=== PATIENT | male | born 1975 | race Caucasian/White ===

== ENCOUNTER 2017-05-23 19:43 | Emergency (ER) | payer SELFPAY ==
[~2017-05-23] VITALS: Ht 175.3 cm; Wt 102.8 kg
[2017-05-23] MEDS ORDERED: KETOROLAC 30 MG/1 ML IVPush ONE (20:30)
[2017-05-23] MEDS ORDERED: ASPIRIN 81 MG TABLET CHEW PO ONE (20:30)
[2017-05-23] MEDS ORDERED: SODIUM CHLORIDE FLUSH 10ML SYR IVF ONE (20:30)
[2017-05-23 20:40] LABS: BASOPHILS # (AUTO) 0.05 x10^3/uL (0-0.1); BASOPHILS % (AUTO) 1 % (0-1); EOSINOPHILS # (AUTO) 0.56 x10^3/uL (0-0.4); EOSINOPHILS % (AUTO) 7 % (1-7); LYMPHOCYTES # (AUTO) 3.08 x10^3/uL (1-3.4); LYMPHOCYTES % (AUTO) 37 % (22-44); MD NO; MEAN CORPUSCULAR HEMOGLOBIN 30.6 pg (27.5-34.5); MEAN CORPUSCULAR HGB CONC 33.8 g/dL (33.2-36.2); MEAN CORPUSCULAR VOLUME 90.5 fL (81-97); MEAN PLATELET VOLUME 9.9 fL (7.4-10.4); MONOCYTES # (AUTO) 0.88 x10^3/uL (0.2-0.8); MONOCYTES % (AUTO) 10 % (2-9); NEUTROPHILS # (AUTO) 3.87 x10^3/uL (1.8-6.8); NEUTROPHILS % (AUTO) 46 % (42-75); PLATELET COUNT 217 x10^3/uL (130-400); RED BLOOD COUNT 4.94 x10^6/uL (4.38-5.82); RED CELL DISTRIBUTION WIDTH 12.9 % (9.4-14.8)
[2017-05-23] MEDS ORDERED: ALBUTEROL/IPRATROPIUM 2.5MG/0.5MG, 3 ML ONE (20:41)
[2017-05-23] MEDS ORDERED: ASPIRIN 81 MG TABLET CHEW ONE (20:45)
[2017-05-23] MEDS ORDERED: KETOROLAC 30 MG/1 ML ONE (20:45)
[2017-05-23 20:50] LABS: ALANINE AMINOTRANSFERASE 41 U/L (12-78); ALBUMIN 3.5 g/dL (3.4-5.0); ANION GAP 8 mmol/L (5-15); CHLORIDE 107 mmol/L (98-107); CREATININE 1.04 mg/dL (0.7-1.3)
[2017-05-23 20:55] LABS: ALKALINE PHOSPHATASE 88 U/L (45-117); BILIRUBIN,TOTAL 0.3 mg/dL (0.2-1.0); TOTAL PROTEIN 7.2 g/dL (6.4-8.2); TROPONIN I < 0.015 ng/mL (0.000-0.045)
[2017-05-23] MEDS ORDERED: ALBUTEROL/IPRATROPIUM 2.5MG/0.5MG, 3 ML NPPB ONE (21:00)
[2017-05-23 21:46] VITALS: BP 134/72
== END 2017-05-23 21:49 | disposition home or self-care (01) ==
LOC: ED 21:43
DX: J15.9 Unspecified bacterial pneumonia (principal); J98.01 Acute bronchospasm; G89.29 Other chronic pain
CPT/HCPCS: 36415; 71046; 80053; 83880; 84484; 85025; 93005; 94640; 96374; 99285; J1885; J7512; J7620